=== PATIENT | female | born 1995 | race African-American/Black ===

== ENCOUNTER 2024-02-22 00:01 | Inpatient (IN) | payer OTHER, SELFPAY ==
[2024-02-22] VITALS (129 sets, daily range): BP systolic 80–145; BP diastolic 50–91; PULSE 48–187; RESP 16–18; TEMP 36.6–37.1; O2SAT 90–100; BMI 29.9
--- NOTE | 2024-02-22 00:23 | LDADM ---
This patient, Qian Montes, was admitted to Labor/Delivery/Recovery 107 on 02/22/24 at 00:01. Plans for labor, pain management and were discussed with patient. Patient/family oriented to hospital policies and general routines including ID bracelet, bed and alarms, visiting hours, pain management, procedures, bathroom and other care routines, personal items, smoking policy, room service/diet and guest tray routines, security routines, and visiting hours. Patient/Family are encouraged to report perceived risks to care and to ask questions if they do not understand what they are told or what they should do. See OBIX for further documentation.
[2024-02-22 00:51] LABS: Basophils Percent Auto 0.3 % (0.2-1.2); Eosinophils Absolute Auto 0.1 K/mm3 (0-0.3); Eosinophils Percent Auto 0.8 % (0-4.4); Hematocrit 40.9 % (37.0-47.0); Hemoglobin 13.5 g/dL (12.0-15.0); Immature Granulocyte Absolute 0.03 K/mm3 (0.00-0.031); Immature Granulocyte Percent A 0.3 % (0-0.5); Immature Platelet Fraction Pct 21.3 % (0.9-11.2); Lymphocytes Absolute Auto 1.95 K/mm3 (0.9-3.2); Lymphocytes Percent Auto 20.2 % (18.3-44.2); Mean Corpuscular Hemoglobin 28.9 pg (26-34); Mean Corpuscular Volume 87.6 fl (80-100); Mean Platelet Volume 13.6 fl (7.4-10.4); Monocytes Absolute Auto 0.8 K/mm3 (0.1-0.6); Neutrophils Absolute Auto 6.8 K/mm3 (1.3-6.7); Neutrophils Percent Auto 70.4 % (45.5-73.1); Platelet Count Result 119 k/mm3 (150-375); Red Blood Count 4.67 M/mm3 (4.2-5.4); Red Cell Distribution Width 15.1 % (11.5-14.5); White Blood Count 9.7 K/mm3 (4.5-10.0)
[2024-02-22 00:52] LABS: Glucose Point of Care 83 mg/dl (65-105)
[2024-02-22] MEDS: miSOPROStol 25 MCG TABLET 50 MCG BUCCAL (01:11)
[2024-02-22 01:41] LABS: HIV 1/2 Ab P24 Ag Result Negative (Negative)
[2024-02-22 03:15] LABS: Rapid Plasma Reagin Non-Reactive (NonReactive)
[2024-02-22] MEDS: LACTATED RINGERS 1,000 ML 125 ML IV CONT (05:34)
[2024-02-22] MEDS: ONDANSETRON INJ 4 MG/2 ML VIAL IV PUSH ×2 (05:35→09:17)
[2024-02-22 05:46] LABS: Glucose Point of Care 75 mg/dl (65-105)
--- NOTE | 2024-02-22 06:13 | WPDANESEPP ---
Anes - Eval Pre Procedure Procedure: Labor Epidural Date/Time: 02/22/24 06:13 Surgeon: Heriberto Preop Diagnosis: Labor Pain Pre Op Diagnosis: IOL Patient Data Age: 28 Gender: F Height: 1.63 m Weight: 79 kg Last Vital Signs Temp 36.6 C 02/22/24 06:00 Pulse 76 02/22/24 06:11 BP 100/71 02/22/24 06:11 Pulse Ox 100 02/22/24 06:08 O2 Del Method Room Air 02/22/24 00:22 Allergies Allergy/AdvReac Type Severity Reaction Status Date / Time No Known Allergies Allergy Verified 01/25/24 12:15 Home Medications Medication Instructions Recorded Confirmed Type aspirin 81 mg tablet 81 mg PO DAILY 01/25/24 01/25/24 History vits no.126-ferrous fum 1 tablet PO DAILY 01/25/24 01/25/24 History 28 mg iron-folic acid 800 mcg tablet (Classic ) valacyclovir 500 mg tablet 500 mg PO Q12H 01/25/24 01/25/24 History (Valtrex) Laboratory Tests 02/22/24 02/22/24 02/22/24 00:24 00:45 05:42 WBC 9.7 K/mm3 (4.5-10.0) RBC 4.67 M/mm3 (4.2-5.4) Hgb 13.5 g/dL (12.0-15.0) Hct 40.9 % (37.0-47.0) MCV 87.6 fl (80-100) MCH 28.9 pg (26-34) MCHC 33.0 g/dl (32-36) RDW 15.1 H % (11.5-14.5) Plt Count 119 L k/mm3 (150-375) MPV 13.6 H fl (7.4-10.4) Immature Gran % (Auto) 0.3 % (0-0.5) Neut % (Auto) 70.4 % (45.5-73.1) Lymph % (Auto) 20.2 % (18.3-44.2) Sawyer % (Auto) 8.0 % (2.6-8.5) Eos % (Auto) 0.8 % (0-4.4) Baso % (Auto) 0.3 % (0.2-1.2) Lymph # (Auto) 1.95 K/mm3 (0.9-3.2) Sawyer # (Auto) 0.8 H K/mm3 (0.1-0.6) Eos # (Auto) 0.1 K/mm3 (0-0.3) Baso # (Auto) 0.0 K/mm3 (0.0-0.1) Abs Immat Gran (auto) 0.03 K/mm3 (0.00-0.031) Absolute Neuts (auto) 6.8 H K/mm3 (1.3-6.7) Absolute Nucleated RBC 0.000 K/mm3 (0.0-0.012) Nucleated RBC % 0.0 % (0.0-0.2) % Immature Plt Fraction 21.3 H % (0.9-11.2) POC Capillary Glucose 83 mg/dl 75 mg/dl (65-105) (65-105) RPR Non-reactive (NonReactive) HIV 1&2 Ab/P24 Ag 4thGn Negative (Negative) Blood Type O Positive Antibody Screen Negative : gestational age (JAXSON 02/19/24, ) Patient hx anesthesia problems: none Family hx anesthesia problems: none Results Review: All pre-operative results and documents have been reviewed as part of the pre-operative evaluation. [facility] Family History Family History Other No pertinent family history Social History Social History Smoking status: Never smoker Second hand tobacco smoke exposure: No Substance use: never Do You Feel Safe in your Home?: Yes Lack of Transportation: No Lack of Food: Never True Current Housing: I Have Housing Concerned About Future Housing: No Difficulty Paying Gas/Electric Bills: No Difficulty Paying for Meds: No Currently Unemployed: No Education: High School Diploma/GED Difficulty w/ Childcare or Family Care: No Spiritual care concerns: No Exam Day of Procedure 02/22/24 06:13 Patient weight: normal Heart: regular rate and rhythm Lungs: normal air movement Airway: Mallampati scale class II Neurological: alert and oriented
[2024-02-22] MEDS: OXYTOCIN 30 UNITS/NS 500 ML 30 UNITS/500 ML BAG 999 UNITS IV CONT (07:21)
[2024-02-22] MEDS: OXYTOCIN 30 UNITS/NS 500 ML 30 UNITS/500 ML BAG 125 UNITS IV CONT (07:54)
--- NOTE | 2024-02-22 08:30 | WPDOBADMIT ---
Obstetrics - Admit Note Admission Note: record reviewed. No pertinent additions to the history and/or any subsequent changes in the physical findings that are not consistent with the expected course of the were found. Patient admitted for medical induction of labor 2/2 GDMA1. Overall well controlled during . [employer] per protocol. Additions to the history and/or subsequent changes in the physical findings follow. None.
--- NOTE | 2024-02-22 08:31 | PM.OBPRVD ---
OB - Vaginal Delivery Note Procedure Delivery date: 02/22/24 Events: Gestational Diabetes Induction method: Per Misoprostol Protocol Delivery monitor: External FHT and External Uterine Route of delivery: Episiotomy description: None Laceration Description: None Delivery repair: vicryl Specimen: No Quantitative Blood Loss (ml): 100 Anesthesia type: Epidural Disposition: Floor Complications: No immediate complications Narrative: See H&P and notes for details on patient's admission and labor. She progressed to complete cervical dilation and at the appropriate time began pushing. With adequate expulsive efforts by the mother, the baby's head was delivered without difficulty. Nuchal cord was present x1 and was delivered through. The baby's right shoulder was anterior and delivered under the pubic symphysis without difficulty. The posterior shoulder and the rest of the baby delivered without difficulty. The umbilical cord was doubly clamped and cut after 60 seconds of delayed cord clamping. Care of the was then assumed by the nursing staff. Mobile Baby Date of : 02/22/24 Gestational Age by Date: 39 Infant gender: Male presentation: vertex position: Left Occiput Anterior Placenta delivery description: Expressed Cord Vessel Description: 3 Vessels, Nuchal Cord and Delayed Cord Clamping
[2024-02-22] MEDS: ACETAMINOPHEN 325 MG TABLET 650 MG PO (10:03)
--- NOTE | 2024-02-22 13:44 | OBPPTRN ---
Patient transferred to post room #280 via (wheelchair). Support person present. Oriented to unit, room, information board, rooming in, admission packet and security measures. Patient verbalizes understanding.
[2024-02-23 03:28] VITALS: BP 107/69; PULSE 77; RESP 18; TEMP 36.6; O2SAT 99
[2024-02-23 05:06] LABS: Hematocrit 33.7 % (37.0-47.0); Hemoglobin 11.1 g/dL (12.0-15.0)
[2024-02-23] MEDS: TETANUS,DIPHTHERIA,AC PERTUSSIS ADULT (0.5 ML) BOOSTRIX IM (07:41)
[2024-02-23] MEDS: MULTIVIT/MIN/PREN/FOL AC/IRON TABLET 1 TAB PO (07:43)
[2024-02-23] MEDS: DOCUSATE SODIUM 100 MG CAPSULE PO (07:43)
[2024-02-23 08:00] VITALS: BP 112/79; PULSE 69; RESP 14; TEMP 36.4; O2SAT 100
--- NOTE | 2024-02-23 08:19 | PM.OBPNVD ---
OB - PN: Subj Subjective Date/time seen: 02/23/24 08:19 Interval history: PPD#1 Doing well, pain controlled VOiding without issue Bottle feeding Ready for discharge home today OB - PN: Obj Data Labs 02/23/24 03:44 Labs: Laboratory Results - last 24 hr 02/23/24 03:44 Hgb 11.1 L Hct 33.7 L OB - PN A/P Plan day: 1 Plan: routine care and discharge home Time Spent With Patient Time: Total time spent is greater than 50% in coordination of care (as documented) at patient's floor/unit and/or counseling patient: Review of Systems Review of Systems: All systems reviewed & are unremarkable except as noted in HPI and below Exam Const: General: comfortable and no acute distress Orientation/consciousness: patient oriented x3 Resp: Effort & Inspection: normal respiratory effort
--- NOTE | 2024-02-23 08:24 | PM.OBDSVD ---
DS: Admitting Diagnosis Discharge Date 02/23/24 Admitting Diagnosis elective induction of labor DS: Discharge Diagnosis Discharge Diagnosis (1) (spontaneous vaginal delivery): Code(s): O80 - Encounter for full-term uncomplicated delivery Status: Acute OB - DS: Summary OB Procedures : None OB Procedures Intrapartum: Spontaneous Vag Delivery OB Procedures: : None Peripartum Data Laceration Description: None Episiotomy description: None Time Spent with Patient Time attestation: Total time spent providing and/or coordinating discharge services: DS: Data Data Completed and Pending Labs on day of discharge: Labs from last 24 hours 02/23/24 03:44 Hgb 11.1 L Hct 33.7 L Discharge Plan Discharge Attending physician on discharge: Israel Louis Discharging Clinician: Israel Louis Patient Disposition: Home, Self-Care Activity: may shower, as tolerated and pelvic rest Diet: as tolerated Patient Instructions: Antibiotic Form Stand Alone Forms: General Discharge Information Follow-up/Referrals: Israel Louis MD [Primary Care Provider] - 4 Weeks Discharge Medications: New docusate sodium 100 mg Capsule 100 mg PO BID PRN (Reason: Constipation) Qty: 60 0RF ibuprofen 600 mg Tablet 600 mg PO Q6H PRN (Reason: Cramping) Qty: 30 0RF Continued Classic 28 mg iron- 800 mcg Tablet 1 tablet PO DAILY Discontinued valacyclovir [Valtrex] 500 mg Tablet 500 mg PO Q12H aspirin 81 mg Tablet 81 mg PO DAILY Date of admission: 02/22/24 00:01 Primary Care Provider: Israel Louis Admitting Provider: Israel Louis Attending physician on admission: Israel Louis Condition: Stable
[2024-02-24 09:23] VITALS: BP 123/89; PULSE 83; RESP 18; TEMP 36.8; O2SAT 100
== END 2024-02-23 12:35 | disposition home or self-care (01) | DRG 560 ==
LOC: ANHLDR 00:05 → ANHOB2 10:54
PROVIDERS: Admitting Provider Obstetrics & Gynecology; PCP Obstetrics & Gynecology; Visit Provider Obstetrics & Gynecology
DX: O24.429 Gestational diabetes mellitus in childbirth, unspecified control (principal); Z37.0 Single live birth; Z3A.40 40 weeks gestation of pregnancy; O69.81X0 Labor and delivery complicated by cord around neck, without compression, not applicable or unspecified
CPT/HCPCS: 36415; 82948; 85014; 85018; 85025; 85055; 86592; 86703; 86850; 86900; 86901; 90715; A9270; G0432; J2405; J2590; J2795; J7120